=== PATIENT | female | born 1985 | race Caucasian/White ===

== ENCOUNTER → 2017-03-27 | Outpatient (CLI) | payer OTHER ==
[~2017-03-27] MED LIST: ACHD5005 PO; BIRTH CONTROL; BIRTH CONTROL PILL PO; BPR75T PO; BUPR200T2 PO; CEPH500C PO; CYCL10TA9 PO; CYCL5TAB11 PO; DCS100C PO; DICY20TA57 PO; GBPN300C PO; HYDR-34 PO; HYDR-3583 PO; HYDR-757 PO; HYDR1TAB PO; HYDR1TAB75 PO; IBP800T PO; IBUP-1773 PO; Ibuprofen PO; METH4TAB PO; MULT-241 PO; NAPR220T29 PO; NITR-65 PO; OXYC-12 PO; PRD20T PO; PROP1TAB77 PO; SMT80CT PO; TOPAMAX PO; TPR100T PO; VNL75CCR PO
--- NOTE | 2017-03-27 19:05 | Diagnostic Imaging Report ---
INDICATION: Abdominal pain for two weeks, bloating. COMPARISON STUDY: None. FINDINGS: Supine view of the abdomen demonstrates surgical clips in the region of the gallbladder fossa. There is normal bowel gas pattern. The osseous structures are normal. There are no abnormal calcifications. IMPRESSION: Normal KUB. Dictated by: Dictated on workstation # [id number]
== END ==
LOC: RAD 14:32
PROVIDERS: ATTEND Nurse Practitioner Family
DX: R10.30 Lower abdominal pain, unspecified (principal); R14.0 Abdominal distension (gaseous)
CPT/HCPCS: 74000

== ENCOUNTER 2017-03-30 15:29 | Emergency (ER) | payer OTHER ==
[~2017-03-30] VITALS: Ht 165.1 cm; Wt 72.6 kg
[2017-03-30 15:49] VITALS: BP 120/92
--- NOTE | 2017-03-30 15:50 | ED Abdominal Pain ---
General Stated Complaint: FEVER/R SIDE ABD PAIN Source of Information: Patient Exam Limitations: No Limitations History of Present Illness Time Seen By Provider: 15:48 Initial Comments To ER by her with reports of right lower quadrant abdominal pain and fever up to 101. This is been ongoing for about 2 weeks. She was seen by her primary care provider Dr. Meza who put her on Flagyl and Bentyl on 03/27/17. Patient denies improvement. She does state that the diarrhea that she initially had has resolved and her stools are now formed but the pain seems to have centered in the right lower quadrant and is associated with nausea and poor appetite for the past few days. Timing/Duration: Getting Worse Severity/Quality: Moderate Location: RLQ Radiation: No Radiation Associated Symptoms: Fever/Chills, Nausea/Vomiting Allergies and Home Medications Allergies Coded Allergies: tramadol (Unverified Allergy, Mild, HIVES, ANXIOUS, DIZY, 10/02/09) Home Medications Bupropion Hcl 200 Mg Tablet.sa, 200 MG PO BID, (Reported) Hydrocodone Bit/Acetaminophen 1 Ea Tablet, 1 EA PO Q6H PRN for PAIN, #50 Prescribed by: CLARENCE MITCHELL on 06/24/141739 Hydrocodone/Acetaminophen 1 Each Tablet, 1 EACH PO Q4H PRN for PAIN-MODERATE, # 10 Prescribed by: ASH MOBLEY on 03/30/17 1714 Methylprednisolone 4 Mg/Dose-Pack Tab.ds.pk, 1 PKT PO UD, #1 Prescribed by: CHRISTINA DAVALOS on 09/11/14 1847 Ondansetron 8 Mg Tab.rapdis, 8 MG PO Q6H PRN for NAUSEA/VOMITING-2ND LINE, #10 Prescribed by: ASH MOBLEY on 03/30/17 1714 Oxycodone Hcl/Acetaminophen 1 Each Tablet, 1-2 EACH PO Q6H PRN for PAIN, #20 Prescribed by: CHRISTINA DAVALOS on 09/11/14 184 Topiramate 100 Mg Tablet, 1.5 TAB PO BID, #30 (Reported) [Ibuprofen] 600 MG TAB, 600 MG PO Q6H PRN for PAIN, #80 Prescribed by: CLARENCE MITCHELL on 06/24/141739 Review of Systems Constitutional: see HPI EENTM: No Symptoms Reported Respiratory: No Symptoms Reported Cardiovascular: No Symptoms Reported Gastrointestinal: See HPI, Abdominal Pain, Denies Constipated, Diarrhea ( resolved currently), Denies Nausea Genitourinary: No Symptoms Reported Musculoskeletal: no symptoms reported Skin: no symptoms reported Psychiatric/Neurological: No Symptoms Reported Endocrine: No Symptoms Reported Past Ktnntwt-Xtncrq-Xcoigu Hx Patient Social History Recent Foreign Travel: No Contact w/Someone Who Travel: No Immunizations Up To Date Date of Pneumonia Vaccine: Jun 24, 2012 Date of Influenza Vaccine: Sep 17, 2012 Surgeries HX Surgeries: Yes (EXP LAP X2, HERNIA, ABLATION,) Surgeries: Hysterectomy Respiratory Hx Respiratory Disorders: No Cardiovascular Hx Cardiac Disorders: No Neurological Hx Neurological Disorders: No (MIGRAINES) Reproductive System Hx Reproductive Disorders: Yes (MENORRHAGIA, CPP) Sexually Transmitted Disease: 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 Genitourinary Hx Genitourinary Disorders: Yes Gastrointestinal Hx Gastrointestinal Disorders: No Musculoskeletal Hx Musculoskeletal Disorders: No Endocrine Hx Endocrine Disorders: No HEENT HX ENT Disorders: No Cancer Hx Cancer: No Psychosocial Hx Psychiatric Problems: Yes Behavioral Health Disorders: Anxiety, Depression Blood Transfusions Hx Blood Disorders: No Family Medical History Significant Family History: No Pertinent Family Hx Family Medial History: Cancer 03 MOTHER GRANDPARENTS Family history: Alzheimer's disease GRANDPARENTS Family history: Cardiovascular disease GRANDPARENTS Family history: Diabetes mellitus GRANDPARENTS Family history: Hypertension GRANDPARENTS Myocardial infarction GRANDPARENTS No Family History of: Alcoholism Congenital heart disease Congestive heart failure Family history: Allergy Family history: Arthritis Family history: Asthma Family history: Breast disease Family history: Gastrointestinal disease Family history: Thyroid disorder Hereditary disease History of - respiratory disease Parkinson's disease Psychotic disorder Seizure disorder Stroke Physical Exam Vital Signs VS - Last 72 Hours, by Label 03/30/17 15:49 Temp 98.6 Pulse 97 Resp 20 B/P (MAP) 120/92 Pulse Ox 97 O2 Delivery Room Air Capillary Refill : General Appearance: WD/WN, no apparent distress HEENT: PERRL/EOMI, normal ENT inspection Neck: non-tender, full range of motion Respiratory: no respiratory distress, no accessory muscle use Gastrointestinal: normal bowel sounds, soft, rebound, tenderness (right lower quadrant) Extremities: normal range of motion, non-tender Neurologic/Psychiatric: alert, oriented x 3, other (very flat rather depressed affect. ) Skin: normal color, warm/dry Progress/Results/Core Measures Results/Orders Lab Results Laboratory Tests Test 03/30/17 15:46 03/30/17 16:30 Range/Units White Blood Count 10.1 4.3-11.0 10^3/uL Red Blood Count 4.80 4.35-5.85 10^6/uL Hemoglobin 14.3 11.5-16.0 G/DL Hematocrit 42 35-52 % Mean Corpuscular Volume 88 80-99 FL Mean Corpuscular Hemoglobin 30 25-34 PG Mean Corpuscular Hemoglobin Concent 34 32-36 G/DL Red Cell Distribution Width 12.3 10.0-14.5 % Platelet Count 255 130-400 10^3/uL Mean Platelet Volume 10.7 H 7.4-10.4 FL Neutrophils (%) (Auto) 65 42-75 % Lymphocytes (%) (Auto) 25 12-44 % Monocytes (%) (Auto) 8 0-12 % Eosinophils (%) (Auto) 2 0-10 % Basophils (%) (Auto) 0 0-10 % Neutrophils # (Auto) 6.6 1.8-7.8 X 10^3 Lymphocytes # (Auto) 2.6 1.0-4.0 X 10^3 Monocytes # (Auto) 0.8 0.0-1.0 X 10^3 Eosinophils # (Auto) 0.2 0.0-0.3 10^3/uL Basophils # (Auto) 0.0 0.0-0.1 10^3/uL Sodium Level 141 135-145 MMOL/L Potassium Level 3.7 3.6-5.0 MMOL/L Chloride Level 112 H 98-107 MMOL/L Carbon Dioxide Level 19 L 21-32 MMOL/L Anion Gap 10 5-14 MMOL/L Blood Urea Nitrogen 15 7-18 MG/DL Creatinine 1.04 0.60-1.30 MG/DL Estimat Glomerular Filtration Rate > 60 BUN/Creatinine Ratio 14 Glucose Level 86 70-105 MG/DL Calcium Level 10.0 8.5-10.1 MG/DL Total Bilirubin 0.8 0.1-1.0 MG/DL Aspartate Amino Transf (AST/SGOT) 16 5-34 U/L Alanine Aminotransferase (ALT/SGPT) 15 0-55 U/L Alkaline Phosphatase 54 40-136 U/L Total Protein 8.0 6.4-8.2 G/DL Albumin 4.8 H 3.2-4.5 G/DL Urine Color YELLOW Urine Clarity SLIGHTLY CLOUDY Urine pH 8 5-9 Urine Specific [place] 1.020 1.016-1.022 Urine Protein 1+ H NEGATIVE Urine Glucose (UA) NEGATIVE NEGATIVE Urine Ketones 1+ H NEGATIVE Urine Nitrite NEGATIVE NEGATIVE Urine Bilirubin NEGATIVE NEGATIVE Urine Urobilinogen NORMAL NORMAL MG/DL Urine Leukocyte Esterase 1+ H NEGATIVE Urine RBC (Auto) NEGATIVE NEGATIVE Urine RBC NONE /HPF Urine WBC RARE /HPF Urine Squamous Epithelial Cells 0-2 /HPF Urine Crystals NONE /LPF Urine Amorphous Sediment MOD MONA PHOSPHATE H /LPF Urine Bacteria NEGATIVE /HPF Urine Casts NONE /LPF Urine Mucus NEGATIVE /LPF Urine Culture Indicated NO My Orders Orders - ASH MOBLEY APRN Ua Culture If Indicated (03/30/17 15:32) Cbc With Automated Diff (03/30/17 15:47) Comprehensive Metabolic Panel (03/30/17 15:47) Saline Lock/Iv-Start (03/30/17 15:47) Ct Abd/Pelv W (Appendicitis) (03/30/17 15:47) Lactated Ringers (Lr 1000 Ml Iv Solution (03/30/17 16:00) Ondansetron Injection (Zofran Injectio (03/30/17 16:00) Ketorolac Injection (Toradol Injection) (03/30/17 16:00) Iohexol Injection (Omnipaque 350 Mg/Ml 1 (03/30/17 16:00) Ns (Ivpb) (Sodium Chloride 0.9% Ivpb Bag (03/30/17 16:00) Fentanyl Injection (Sublimaze Injection (03/30/17 17:00) Fentanyl Injection (Sublimaze Injection (03/30/17 17:15) Us Non Ob Transvaginal [id number] (03/30/17 17:06) Medications Given in ED Current Medications Medications Dose Ordered Sig/Olivia Route Start Time Stop Time Status Last Admin Dose Admin Fentanyl Citrate 50 mcg ONCE ONCE IVP 03/30/17 17:15 03/30/17 17:16 DC 03/30/17 17:07 50 MCG Iohexol 100 ml ONCE ONCE IV 03/30/17 16:00 03/30/17 16:01 DC 03/30/17 16:19 100 ML Ketorolac Tromethamine 30 mg ONCE ONCE IVP 03/30/17 16:00 03/30/17 16:01 DC 03/30/17 16:09 30 MG Ondansetron HCl 8 mg ONCE ONCE IVP 03/30/17 16:00 03/30/17 16:01 DC 03/30/17 16:09 8 MG Sodium Chloride 100 ml ONCE ONCE IV 03/30/17 16:00 03/30/17 16:01 DC 03/30/17 16:19 80 ML Vital Signs/I&O Vital Sign - Last 12Hours 03/30/17 15:49 Temp 98.6 Pulse 97 Resp 20 B/P (MAP) 120/92 Pulse Ox 97 O2 Delivery Room Air Diagnostic Imaging Diagonstic Imaging: CT Comments NAME: FRITZ [facility] REC#: [id number] PT STATUS: REG ER : 1985 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 TECHNIQUE: Multiple contiguous axial images were obtained through the abdomen and pelvis after the administration of intravenous contrast. INDICATION: Right lower quadrant and groin pain. COMPARISON: February 04, 2013. FINDINGS: The visualized lung bases are clear. Cholecystectomy. The liver and spleen are unremarkable. The adrenal glands are unremarkable. The pancreas is unremarkable. The kidneys are unremarkable. No aneurysmal dilatation of the abdominal aorta. Mild diastases of the rectus abdominal musculature. The urinary bladder is unremarkable. The uterus is not visualized, likely surgically absent. The left ovary is enlarged when compared to the prior examination. The right adnexa is unremarkable. No bowel obstruction or pneumatosis. No significant adenopathy, free air or free fluid within the abdomen or pelvis. No acute osseous abnormality. A 1.5 cm fat density lesion is noted within a loop of bowel within the right lower pelvis, felt to relate to a lipoma. No evidence of acute appendicitis. IMPRESSION: 1. Enlargement of the left ovary when compared to the prior examination. This is nonspecific and could simply relate to development of internal follicles. However, ovarian torsion is not excluded, recommend clinical correlation. If there is any clinical concern for ovarian torsion, a pelvic ultrasound should be obtained. 2. No evidence of acute appendicitis. 3. Additional findings as described above. Report was called to Ash Mobley APRN in the [facility] ER at 5:04 p.m., by rico. Dictated on workstation # [id number] Dict: 03/30/17 1643 Trans: 03/30/17 1706 RICO [id number] Interpreted by: JOSIE HARRIS MD Electronically signed by: Departure Communication Progress Notes 1700-nausea is now completely gone. Pain has reduced to a 4. Awaiting urinalysis and CT report. 1823-Transvaginal US unremarkable with normal flow to left ovary per US tech. Will DC to home. Impression Impression: Primary Impression: Nonspecific abdominal pain Additional Impression: Possible Lipoma of small intestine Disposition: HOME, SELF-CARE Condition: Improved Departure-Patient Inst. Decision time for Depature: 17:12 Referrals: DEZ BARROS BRETT D DO JENKINS, XAVIER M MD KIDO, TAKAAKI MD STEVENS, RACHEL L MD (PCP/Family) Primary Care Physician Patient Instructions: NO INSTRUCTIONS GIVEN Add. Discharge Instructions: 1. Return to ER for any worsening symptoms 2. Follow-up with Dr. Meza tomorrow and schedule follow up with a surgeon to discuss any further evaluation that may be warranted for the abdominal pain. Scripts Ondansetron (Zofran Odt) 8 Mg Tab.rapdis 8 MG PO Q6H Y for NAUSEA/VOMITING-2ND LINE, #10 TAB Prov: ASH MOBLEY APRN 03/30/17 Hydrocodone/Acetaminophen ([place] 5-325 Tablet) 1 Each Tablet 1 EACH PO Q4H Y for PAIN-MODERATE, #10 TAB Prov: ASH MOBLEY APRN 03/30/17 Copy Copies To 1: WILLOW MEZA MD, PETER J APRN March 30, 2017 15:50
[2017-03-30 15:52] LABS: BASOPHILS % (AUTO) 0 % (0-10); EOSINOPHILS # (AUTO) 0.2 10^3/uL (0.0-0.3); EOSINOPHILS % (AUTO) 2 % (0-10); LYMPHOCYTES # (AUTO) 2.6 X 10^3 (1.0-4.0); LYMPHOCYTES % (AUTO) 25 % (12-44); MEAN CORPUSCULAR HEMOGLOBIN 30 PG (25-34); MEAN CORPUSCULAR HGB CONC 34 G/DL (32-36); MEAN CORPUSCULAR VOLUME 88 FL (80-99); MEAN PLATELET VOLUME 10.7 FL (7.4-10.4); MONOCYTES # (AUTO) 0.8 X 10^3 (0.0-1.0); MONOCYTES % (AUTO) 8 % (0-12); NEUTROPHILS # (AUTO) 6.6 X 10^3 (1.8-7.8); NEUTROPHILS % (AUTO) 65 % (42-75); PLATELET COUNT 255 10^3/uL (130-400); RED CELL DISTRIBUTION WIDTH 12.3 % (10.0-14.5); WHITE BLOOD COUNT 10.1 10^3/uL (4.3-11.0)
[2017-03-30] MEDS ORDERED: IOHEXOL 350 MG/ML 100 ML (OMNIPAQUE 350) VIAL IV ONE (16:00)
[2017-03-30] MEDS ORDERED: ONDANSETRON 4 MG/2 ML (SDV) Z0FRAN IVP ONE (16:00)
[2017-03-30] MEDS ORDERED: LACTATED RINGERS 1,000 ML IV SCH (16:00)
[2017-03-30] MEDS ORDERED: NS 100 ML (IVPB) BAG IV ONE (16:00)
[2017-03-30] MEDS ORDERED: KETOROLAC 30 MG/ML VIAL IVP ONE (16:00)
[2017-03-30 16:13] LABS: ALANINE AMINOTRANSFERASE 15 U/L (0-55); ALBUMIN 4.8 G/DL (3.2-4.5); ANION GAP 10 MMOL/L (5-14); ASPARTATE AMINO TRANSFERASE 16 U/L (5-34); BILIRUBIN,TOTAL 0.8 MG/DL (0.1-1.0); BLOOD UREA NITROGEN 15 MG/DL (7-18); BUN/CREATININE RATIO 14; CARBON DIOXIDE 19 MMOL/L (21-32); CHLORIDE 112 MMOL/L (98-107); CREATININE SERUM 1.04 MG/DL (0.60-1.30); GFR ESTIMATED > 60; GLUCOSE 86 MG/DL (70-105); POTASSIUM 3.7 MMOL/L (3.6-5.0); SODIUM 141 MMOL/L (135-145)
[2017-03-30 16:45] LABS: BILIRUBIN,URINE NEGATIVE (NEGATIVE); KETONES,URINE 1+ (NEGATIVE); LEUKOCYTE ESTERASE ,URINE 1+ (NEGATIVE); NITRITE,URINE NEGATIVE (NEGATIVE); PH,URINE 8 (5-9); PROTEIN,URINE 1+ (NEGATIVE); UROBILINOGEN,URINE NORMAL (NORMAL)
[2017-03-30] MEDS ORDERED: fentaNYL INJECTION 100 MCG/2 ML AMP IVP ONE ×2 (17:00→17:15)
[2017-03-30 17:05] LABS: SQUAMOUS EPITHELIAL CELL,UR 0-2 /HPF; WBC,URINE RARE /HPF
--- NOTE | 2017-03-30 17:06 | Diagnostic Imaging Report ---
PROCEDURE: CT abdomen and pelvis with contrast, rule out appendicitis. TECHNIQUE: Multiple contiguous axial images were obtained through the abdomen and pelvis after the administration of intravenous contrast. INDICATION: Right lower quadrant and groin pain. COMPARISON: February 04, 2013. FINDINGS: The visualized lung bases are clear. Cholecystectomy. The liver and spleen are unremarkable. The adrenal glands are unremarkable. The pancreas is unremarkable. The kidneys are unremarkable. No aneurysmal dilatation of the abdominal aorta. Mild diastases of the rectus abdominal musculature. The urinary bladder is unremarkable. The uterus is not visualized, likely surgically absent. The left ovary is enlarged when compared to the prior examination. The right adnexa is unremarkable. No bowel obstruction or pneumatosis. No significant adenopathy, free air or free fluid within the abdomen or pelvis. No acute osseous abnormality. A 1.5 cm fat density lesion is noted within a loop of bowel within the right lower pelvis, felt to relate to a lipoma. No evidence of acute appendicitis. IMPRESSION: 1. Enlargement of the left ovary when compared to the prior examination. This is nonspecific and could simply relate to development of internal follicles. However, ovarian torsion is not excluded, recommend clinical correlation. If there is any clinical concern for ovarian torsion, a pelvic ultrasound should be obtained. 2. No evidence of acute appendicitis. 3. Additional findings as described above. Report was called to Javier Mobley APRN in the [facility] [place] ER at 5:04 p.m., by dillon. Dictated by: Dictated on workstation # [id number]
[2017-03-30] MEDS ORDERED: ONDA8TAB9 PO (17:14)
[2017-03-30] MEDS ORDERED: HYDR-757 PO (17:14)
--- NOTE | 2017-03-30 18:48 | Diagnostic Imaging Report ---
Clinical indication: Patient with right-sided abdominal pain and fever. Patient had CT earlier. Patient has history of right ovary and uterus removal. Exam: Transabdominal and transvaginal ultrasound of the pelvis. Comparison: CT scan of the abdomen and pelvis with contrast dated 03/30/2017. Pelvic ultrasound dated 11/05/2013. Findings: Visualized expected region of the right pelvis shows no significant abnormality. Patient has history of right ovary and uterus removal. There is a 9 mm x 7 mm x 7 mm cystic structure within the left ovary. Left ovary is otherwise unremarkable. There is normal appearing spectral Doppler waveform involving the left ovary. There is no evidence of ovarian torsion. The left ovary measures 2.4 cm x 2.3 cm x 2.4 cm. There is no other significant abnormality seen on this exam. Impression: 1: There is a 9 mm left ovarian cyst. Otherwise, left ovary is unremarkable. There is no evidence of ovarian torsion. 2: Surgically absent right ovary and uterus. Dictated by: Dictated on workstation # [id number]
== END 2017-03-30 18:25 | disposition home or self-care (01) ==
LOC: EDUNIT# 15:29 → ER 15:31
DX: R10.31 Right lower quadrant pain (principal); R50.9 Fever, unspecified; N83.9 Noninflammatory disorder of ovary, fallopian tube and broad ligament, unspecified
CPT/HCPCS: 36415; 74177; 76830; 80053; 81000; 85025; 96361; 96374; 96375

== ENCOUNTER 2017-04-01 15:36 | Emergency (ER) | payer OTHER ==
[~2017-04-01] VITALS: Ht 152.4 cm; Wt 76.2 kg
[~2017-04-01 15:36] MED LIST changes: +ONDA8TAB9 PO
[2017-04-01] MEDS ORDERED: CIPR-226 PO (16:02)
[2017-04-01] MEDS ORDERED: DICY10CA59 PO (16:02)
--- NOTE | 2017-04-01 16:07 | ED Neurological Problem ---
General Chief Complaint: Neurological Problems Stated Complaint: NUMBNESS IN EXTREMITIES,LIGHT HEADEDNESS Nursing Triage Note: pt complained of generalized pain started couple weeks ago. pain got worse yesterday. today pt is having numbness, tingling, neck pain. Nursing Sepsis Screen: No Definite Risk Source: patient Exam Limitations: no limitations History of Present Illness Time seen by provider: 16:50 Initial Comments 1605 patient refuses to see a provider until her is present in the room. 1650 is now present in the room. Allergies and Home Medications Allergies Coded Allergies: tramadol (Unverified Allergy, Mild, HIVES, ANXIOUS, DIZY, 10/02/09) Home Medications Bupropion Hcl 200 Mg Tablet.sa, 200 MG PO BID, (Reported) Ciprofloxacin HCl 250 Mg Tablet, 250 MG PO, (Reported) Dicyclomine HCl 10 Mg Capsule, 10 MG PO, (Reported) Hydrocodone Bit/Acetaminophen 1 Ea Tablet, 1 EA PO Q6H PRN for PAIN, #50 Prescribed by: CLARENCE MITCHELL on 06/24/14 1740 Topiramate 100 Mg Tablet, 1.5 TAB PO BID, #30 (Reported) Past Shmpiri-Qeopik-Vfakwj Hx Patient Social History Alcohol Use: Denies Use Recreational Drug Use: No Smoking Status: Never a Smoker 2nd Hand Smoke Exposure: No Recent Foreign Travel: No Contact w/Someone Who Travel: No Recent Infectious Disease Expo: No Recent Hopitalizations: No Immunizations Up To Date PED Vaccines UTD: No Date of Pneumonia Vaccine: Jun 24, 2012 Date of Influenza Vaccine: Sep 17, 2012 Seasonal Allergies Seasonal Allergies: No Surgeries HX Surgeries: Yes (EXP LAP X2, HERNIA, ABLATION,) Surgeries: Gallbladder, Hysterectomy, Tubal Ligation Respiratory Hx Respiratory Disorders: No Cardiovascular Hx Cardiac Disorders: No Neurological Hx Neurological Disorders: No (MIGRAINES) Reproductive System Hx Reproductive Disorders: Yes (MENORRHAGIA, CPP) 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 Genitourinary Hx Genitourinary Disorders: Yes Genitourinary Disorders: UTI-Chronic Gastrointestinal Hx Gastrointestinal Disorders: No Musculoskeletal Hx Musculoskeletal Disorders: No Endocrine Hx Endocrine Disorders: No HEENT HX ENT Disorders: No Cancer Hx Cancer: No Psychosocial Hx Psychiatric Problems: Yes Behavioral Health Disorders: Anxiety, Depression Blood Transfusions Hx Blood Disorders: No Family Medical History Significant Family History: No Pertinent Family Hx Family Medial History: Cancer 03 MOTHER GRANDPARENTS Family history: Alzheimer's disease GRANDPARENTS Family history: Cardiovascular disease GRANDPARENTS Family history: Diabetes mellitus GRANDPARENTS Family history: Hypertension GRANDPARENTS Myocardial infarction GRANDPARENTS No Family History of: Alcoholism Congenital heart disease Congestive heart failure Family history: Allergy Family history: Arthritis Family history: Asthma Family history: Breast disease Family history: Gastrointestinal disease Family history: Thyroid disorder Hereditary disease History of - respiratory disease Parkinson's disease Psychotic disorder Seizure disorder Stroke Physical Exam Vital Signs Vital Sign - Last 12Hours 04/01/17 15:48 Temp 98.7 Pulse 66 Resp 20 B/P (MAP) 130/88 Pulse Ox 99 O2 Delivery Room Air Capillary Refill : Less Than 3 Seconds Progress/Results/Core Measures Results/Orders Lab Results Laboratory Tests Test 04/01/17 15:47 04/01/17 17:47 Range/Units Urine Color YELLOW Urine Clarity CLEAR Urine pH 7 5-9 Urine Specific [place] 1.010 L 1.016-1.022 Urine Protein NEGATIVE NEGATIVE Urine Glucose (UA) NEGATIVE NEGATIVE Urine Ketones NEGATIVE NEGATIVE Urine Nitrite NEGATIVE NEGATIVE Urine Bilirubin NEGATIVE NEGATIVE Urine Urobilinogen NORMAL NORMAL MG/DL Urine Leukocyte Esterase NEGATIVE NEGATIVE Urine RBC (Auto) NEGATIVE NEGATIVE Urine RBC NONE /HPF Urine WBC NONE /HPF Urine Squamous Epithelial Cells RARE /HPF Urine Crystals NONE /LPF Urine Bacteria NONE /HPF Urine Casts NONE /LPF Urine Mucus NEGATIVE /LPF Urine Culture Indicated NO White Blood Count 6.8 4.3-11.0 10^3/uL Red Blood Count 4.00 L 4.35-5.85 10^6/uL Hemoglobin 11.9 11.5-16.0 G/DL Hematocrit 35 35-52 % Mean Corpuscular Volume 89 80-99 FL Mean Corpuscular Hemoglobin 30 25-34 PG Mean Corpuscular Hemoglobin Concent 34 32-36 G/DL Red Cell Distribution Width 12.3 10.0-14.5 % Platelet Count 210 130-400 10^3/uL Mean Platelet Volume 10.6 H 7.4-10.4 FL Neutrophils (%) (Auto) 71 42-75 % Lymphocytes (%) (Auto) 21 12-44 % Monocytes (%) (Auto) 7 0-12 % Eosinophils (%) (Auto) 2 0-10 % Basophils (%) (Auto) 0 0-10 % Neutrophils # (Auto) 4.8 1.8-7.8 X 10^3 Lymphocytes # (Auto) 1.4 1.0-4.0 X 10^3 Monocytes # (Auto) 0.5 0.0-1.0 X 10^3 Eosinophils # (Auto) 0.1 0.0-0.3 10^3/uL Basophils # (Auto) 0.0 0.0-0.1 10^3/uL Erythrocyte Sedimentation Rate 8 0-20 MM/HR Sodium Level 142 135-145 MMOL/L Potassium Level 3.7 3.6-5.0 MMOL/L Chloride Level 113 H 98-107 MMOL/L Carbon Dioxide Level 21 21-32 MMOL/L Anion Gap 8 5-14 MMOL/L Blood Urea Nitrogen 9 7-18 MG/DL Creatinine 0.96 0.60-1.30 MG/DL Estimat Glomerular Filtration Rate > 60 BUN/Creatinine Ratio 9 Glucose Level 85 70-105 MG/DL Calcium Level 9.2 8.5-10.1 MG/DL Total Bilirubin 0.4 0.1-1.0 MG/DL Aspartate Amino Transf (AST/SGOT) 90 H 5-34 U/L Alanine Aminotransferase (ALT/SGPT) 75 H 0-55 U/L Alkaline Phosphatase 74 40-136 U/L C-Reactive Protein High Sensitivity 0.40 0.00-0.50 MG/DL Total Protein 6.5 6.4-8.2 G/DL Albumin 4.2 3.2-4.5 G/DL Lipase 14 8-78 U/L My Orders Orders - DARIANA BOLDEN Cbc With Automated Diff (04/01/17 17:18) Comprehensive Metabolic Panel (04/01/17 17:18) Hs C Reactive Protein (04/01/17 17:18) Lipase (04/01/17 17:18) Ua Culture If Indicated (04/01/17 17:18) Erythrocyte Sedimentation Rate (04/01/17 17:18) Saline Lock/Iv-Start (04/01/17 17:18) Ketorolac Injection (Toradol Injection) (04/01/17 17:18) Ns Iv 1000 Ml (Sodium Chloride 0.9%) (04/01/17 17:18) Iv Push Youth Program Director Ed (04/01/17 ) Medications Given in ED Vital Signs/I&O Vital Sign - Last 12Hours 04/01/17 04/01/17 15:48 19:52 Temp 98.7 97.6 Pulse 66 63 Resp 20 20 B/P (MAP) 130/88 Pulse Ox 99 99 O2 Delivery Room Air Blood Pressure Mean: 102 Departure Impression Impression: Primary Impression: Abdominal pain Additional Impressions: Nausea Ovarian cyst Disposition: HOME, SELF-CARE Condition: Improved Departure-Patient Inst. Decision time for Depature: 19:39 Referrals: QUINTON BALES MD, RACHEL L MD (PCP/Family) Primary Care Physician Patient Instructions: Acute Abdomen (Belly Pain), Adult (DC), GASTROENTERITIS- 7Y-ADULT Add. Discharge Instructions: All discharge instructions reviewed with patient and/or family. Voiced understanding. Continue cipro, zofran, and bentyl. Drink plenty of fluids. Continue miralax. Clear liquid diet x3 days, then increase as tolerated. Avoid spicy foods and fatty foods. Follow-up with Dr. Bales tomorrow for recheck , call first in the morning for appointment time. Return to the emergency department for worsened pain, fever, vomiting, rectal bleeding, black stools, vomiting blood, or any other concerns. DARIANA BOLDEN April 01, 2017 16:07
[2017-04-01] MEDS ORDERED: KETOROLAC 30 MG/ML VIAL IVP STA (17:18)
[2017-04-01] MEDS ORDERED: NS IV 1000 ML 1,000 ML IV ONE (17:18)
[2017-04-01 17:24] LABS: BILIRUBIN,URINE NEGATIVE (NEGATIVE); KETONES,URINE NEGATIVE (NEGATIVE); LEUKOCYTE ESTERASE ,URINE NEGATIVE (NEGATIVE); NITRITE,URINE NEGATIVE (NEGATIVE); PH,URINE 7 (5-9); PROTEIN,URINE NEGATIVE (NEGATIVE); UROBILINOGEN,URINE NORMAL (NORMAL)
[2017-04-01 17:31] LABS: SQUAMOUS EPITHELIAL CELL,UR RARE /HPF
[2017-04-01 17:58] LABS: BASOPHILS % (AUTO) 0 % (0-10); EOSINOPHILS # (AUTO) 0.1 10^3/uL (0.0-0.3); EOSINOPHILS % (AUTO) 2 % (0-10); LYMPHOCYTES # (AUTO) 1.4 X 10^3 (1.0-4.0); LYMPHOCYTES % (AUTO) 21 % (12-44); MEAN CORPUSCULAR HEMOGLOBIN 30 PG (25-34); MEAN CORPUSCULAR HGB CONC 34 G/DL (32-36); MEAN CORPUSCULAR VOLUME 89 FL (80-99); MEAN PLATELET VOLUME 10.6 FL (7.4-10.4); MONOCYTES # (AUTO) 0.5 X 10^3 (0.0-1.0); MONOCYTES % (AUTO) 7 % (0-12); NEUTROPHILS # (AUTO) 4.8 X 10^3 (1.8-7.8); NEUTROPHILS % (AUTO) 71 % (42-75); PLATELET COUNT 210 10^3/uL (130-400); RED CELL DISTRIBUTION WIDTH 12.3 % (10.0-14.5); WHITE BLOOD COUNT 6.8 10^3/uL (4.3-11.0)
[2017-04-01 18:16] LABS: ALANINE AMINOTRANSFERASE 75 U/L (0-55); ALBUMIN 4.2 G/DL (3.2-4.5); ANION GAP 8 MMOL/L (5-14); ASPARTATE AMINO TRANSFERASE 90 U/L (5-34); BILIRUBIN,TOTAL 0.4 MG/DL (0.1-1.0); BLOOD UREA NITROGEN 9 MG/DL (7-18); BUN/CREATININE RATIO 9; CALCIUM 9.2 MG/DL (8.5-10.1); CARBON DIOXIDE 21 MMOL/L (21-32); CHLORIDE 113 MMOL/L (98-107); CREATININE SERUM 0.96 MG/DL (0.60-1.30); GFR ESTIMATED > 60; GLUCOSE 85 MG/DL (70-105); LIPASE 14 U/L (8-78); POTASSIUM 3.7 MMOL/L (3.6-5.0); SODIUM 142 MMOL/L (135-145); TOTAL PROTEIN 6.5 G/DL (6.4-8.2)
[2017-04-01 18:19] LABS: ERYTHROCYTE SEDIMENTATION RATE 8 MM/HR (0-20)
[2017-04-01 19:52] VITALS: BP 133/75
== END 2017-04-01 19:52 | disposition home or self-care (01) ==
LOC: EDUNIT# 15:36 → ER 15:38
DX: R10.30 Lower abdominal pain, unspecified (principal); R11.0 Nausea; N83.202 Unspecified ovarian cyst, left side
CPT/HCPCS: 36415; 80053; 81000; 83690; 85025; 85652; 86141; 96361; 96374

== ENCOUNTER 2022-11-08 11:05 | Emergency (ER) | payer OTHER ==
[~2022-11-08] VITALS: Ht 167 cm; Wt 104.0 kg
[~2022-11-08 11:05] MED LIST changes: +CIPR-226 PO; +DICY10CA59 PO; +HYDR-4226 PO
--- NOTE | 2022-11-08 11:23 | ED Chest Pain ---
General Chief Complaint: Chest Pain Stated Complaint: CHEST PAINS Nursing Triage Note: PT STATES CENTER CHEST PAIN SHARP AND TIGHT THAT STARTED FRIDAY, PALPATATIONS FOR A COUPLE WEEKS. Source: patient Exam Limitations: no limitations History of Present Illness Date Seen by Provider: Nov 08, 2022 Time Seen by Provider: 11:19 Initial Comments To ER by private vehicle. She presented to [facility] this morning for complaints of chest pain for 3 days. She is had palpitations for about 2 weeks. When she gets these palpitations they seem to take her breath away lasting only a few seconds. No syncope or near syncope. No cough no fevers. Chest pain is tight and dull currently but has been tight and sharp. Is worsened by activity and deep breathing. Does not smoke. Timing/Duration: changing over time Severity/Quality: moderate Location: central Radiation: no radiation Activities at Onset: none Prior CP/Workup: no prior chest pain ASA po COMPRESSED GASES TESTER: No NTG SL COMPRESSED GASES TESTER: No Associated Symptoms: denies symptoms Allergies and Home Medications Allergies Coded Allergies: tramadol (Unverified Allergy, Mild, HIVES, ANXIOUS, DIZY, 10/02/09) Patient Home Medication List Home Medication List Reviewed: Yes Bupropion Hcl (Wellbutrin Sr) 200 Mg Tablet.sa, 200 MG PO BID, (Reported) Entered as Reported by: REBECCA KWONG on 01/12/14 0829 Ciprofloxacin HCl (Cipro) 250 Mg Tablet, 250 MG PO, (Reported) Entered as Reported by: JOSE MIGUEL MILLER on 04/01/17 1602 Dicyclomine HCl (Bentyl) 10 Mg Capsule, 10 MG PO, (Reported) Entered as Reported by: JOSE MIGUEL MILLER on 04/01/17 1602 Hydrocodone Bit/Acetaminophen (Lortab 7.5 Mg) 1 Ea Tablet, 1 EA PO Q6H PRN for PAIN Prescribed by: CLARENCE MITCHELL on 06/24/14 1740 Topiramate (Topamax) 100 Mg Tablet, 1.5 TAB PO BID, (Reported) Entered as Reported by: SONDRA BABCOCK on 06/22/14 1313 Review of Systems Review of Systems Constitutional: see HPI; No chills, No fever, No malaise, No weakness EENTM: No Symptoms Reported Respiratory: See HPI, Cough Cardiovascular: No Symptoms Reported Gastrointestinal: No Symptoms Reported Genitourinary: No Symptoms Reported Musculoskeletal: no symptoms reported Skin: no symptoms reported Psychiatric/Neurological: No Symptoms Reported Endocrine: No Symptoms Reported Hematologic/Lymphatic: No Symptoms Reported Past Xhjbyza-Dtetrf-Iqovzy Hx Patient Social History Tobacco Use?: No Substance use?: No Alcohol Use?: No Immunizations Up To Date PED Vaccines UTD: No Seasonal Allergies Seasonal Allergies: No Past Medical History Surgery/Hospitalization HX: GERD, HYPOTHYROIDISM Surgeries: Yes (EXP LAP X2, HERNIA, ABLATION,) Gallbladder, Hysterectomy, Tubal Ligation Respiratory: No Cardiac: No Neurological: Yes (MIGRAINES) Reproductive Disorders: Yes (MENORRHAGIA, CPP) [employer] History: Hysterectomy Sexually Transmitted Disease: No Genitourinary: Yes UTI-Chronic Gastrointestinal: No Musculoskeletal: No Endocrine: No HEENT: No Cancer: No Psychosocial: Yes Anxiety, Depression Integumentary: No Blood Disorders: No Family Medical History Cancer 03 MOTHER GRANDPARENTS Family history: Alzheimer's disease GRANDPARENTS Family history: Cardiovascular disease GRANDPARENTS Family history: Diabetes mellitus GRANDPARENTS Family history: Hypertension GRANDPARENTS Myocardial infarction GRANDPARENTS No Family History of: Alcoholism Congenital heart disease Congestive heart failure Family history: Allergy Family history: Arthritis Family history: Asthma Family history: Breast disease Family history: Gastrointestinal disease Family history: Thyroid disorder Hereditary disease History of - respiratory disease Parkinson's disease Psychotic disorder Seizure disorder Stroke No Pertinent Family Hx Physical Exam Vital Signs Vital Signs - First Documented 11/08/22 11:11 Temp 36.5 Pulse 86 Resp 18 B/P (MAP) 178/109 (132) Pulse Ox 100 O2 Delivery Room Air Capillary Refill : Less Than 3 Seconds Height, Weight, BMI Height: 5'0" Weight: 168lbs. 0.0oz. 76.589470ny; 37.00 BMI Method:Stated General Appearance: No Apparent Distress, WD/WN Neck: Full Range of Motion, Normal Inspection Respiratory: Normal Breath Sounds, No Accessory Muscle Use, No Respiratory Distress Cardiovascular: Regular Rate, Rhythm, Normal Peripheral Pulses Gastrointestinal: Normal Bowel Sounds, Non Tender, Soft Extremity: Normal Capillary Refill, Normal Inspection Neurologic/Psychiatric: Alert, Oriented x3 Skin: Normal Color, Warm/Dry Progress/Results/Core Measures Results/Orders Lab Results Laboratory Tests Test 11/08/22 11:14 Range/Units White Blood Count 9.5 4.3-11.0 10^3/uL Red Blood Count 4.69 3.80-5.11 10^6/uL Hemoglobin 13.7 11.5-16.0 g/dL Hematocrit 40 35-52 % Mean Corpuscular Volume 86 80-99 fL Mean Corpuscular Hemoglobin 29 25-34 pg Mean Corpuscular Hemoglobin Concent 34 32-36 g/dL Red Cell Distribution Width 12.9 10.0-14.5 % Platelet Count 230 130-400 10^3/uL Mean Platelet Volume 10.8 9.0-12.2 fL Immature Granulocyte % (Auto) 0 % Neutrophils (%) (Auto) 68 42-75 % Lymphocytes (%) (Auto) 24 12-44 % Monocytes (%) (Auto) 6 0-12 % Eosinophils (%) (Auto) 2 0-10 % Basophils (%) (Auto) 1 0-10 % Neutrophils # (Auto) 6.4 1.8-7.8 10^3/uL Lymphocytes # (Auto) 2.3 1.0-4.0 10^3/uL Monocytes # (Auto) 0.5 0.0-1.0 10^3/uL Eosinophils # (Auto) 0.2 0.0-0.3 10^3/uL Basophils # (Auto) 0.1 0.0-0.1 10^3/uL Immature Granulocyte # (Auto) 0.0 0.0-0.1 10^3/uL D-Dimer 0.39 0.00-0.49 UG/ML Sodium Level 137 135-145 MMOL/L Potassium Level 3.8 3.6-5.0 MMOL/L Chloride Level 101 98-107 MMOL/L Carbon Dioxide Level 26 21-32 MMOL/L Anion Gap 10 5-14 MMOL/L Blood Urea Nitrogen 14 7-18 MG/DL Creatinine 0.81 0.60-1.30 MG/DL Estimat Glomerular Filtration Rate 96 BUN/Creatinine Ratio 17 Glucose Level 115 H 70-105 MG/DL Calcium Level 10.1 8.5-10.1 MG/DL Corrected Calcium 9.7 8.5-10.1 MG/DL Total Bilirubin 0.4 0.1-1.0 MG/DL Aspartate Amino Transf (AST/SGOT) 20 5-34 U/L Alanine Aminotransferase (ALT/SGPT) 40 0-55 U/L Alkaline Phosphatase 71 40-136 U/L Troponin I < 0.028 <0.028 NG/ML Total Protein 8.2 6.4-8.2 GM/DL Albumin 4.5 3.2-4.5 GM/DL Serum Test, Qualitative NEGATIVE NEGATIVE My Orders Orders - ASH HEATH APRN Ekg Tracing (11/08/22 11:10) Cbc With Automated Diff (11/08/22 11:17) Fibrin Degradation Products (11/08/22 11:17) Comprehensive Metabolic Panel (11/08/22 11:17) Hcg,Qualitative Serum (11/08/22 11:17) Chest 1 View, Ap/Pa Only (11/08/22 11:17) Troponin I Quoc (11/08/22 11:17) Antacid Suspension (Mylanta Suspension (11/08/22 11:30) Lidocaine 2% Viscous 15 Ml (Xylocaine Vi (11/08/22 11:30) Medications Given in ED Current Medications Medications Dose Ordered Sig/Olivia Route Start Time Stop Time Status Last Admin Dose Admin Al Hydrox/Mg Hydrox/Simethicone 30 ml ONCE ONCE PO 11/08/22 11:30 11/08/22 11:31 DC 11/08/22 11:22 30 ML Lidocaine HCl 15 ml ONCE ONCE PO 11/08/22 11:30 11/08/22 11:31 DC 11/08/22 11:23 15 ML Vital Signs/I&O 11/08/22 11:11 Temp 36.5 Pulse 86 Resp 18 B/P (MAP) 178/109 (132) Pulse Ox 100 O2 Delivery Room Air Blood Pressure Mean: 132 Departure Communication (Admissions) Family Conversation 1202-blood pressure has fallen to 140/90, was 170/90 on arrival. Given her sensation of palpitations with hypertension I will start her on a beta-cinda, metoprolol extended release 25 mg daily. The chest pain is likely related to pleurisy/pleuritic pain as it seems to be worse with deep breathing. The GI cocktail did not help with the chest pain. Her EKG is without acute abnormality, sinus rhythm no ectopy rate of [address] segment changes. NAME: FRITZ KEARNEY [facility] REC#: [id number] PT STATUS: REG ER : 1985 PHYSICIAN: ASH HEATH APRN ADMIT DATE: 11/08/22/ER Draft Date of Exam:11/08/22 CHEST 1 VIEW, AP/PA ONLY Indication: Chest pain. Time of Exam: 11:33 AM No prior studies are available for comparison. Findings: The heart size is normal. The pulmonary vascularity is unremarkable. The lungs are clear. No infiltrate, effusion or pneumothorax is detected. Impression: No acute cardiopulmonary process is detected. Dictated on workstation # [id number] Dict: 11/08/22 1146 Trans: 11/08/22 1147 [facility] [id number] Interpreted by: KETAN SPRINGER MD Electronically signed by: Impression Primary Impression: Palpitations Additional Impression: Pleuritic chest pain Disposition: HOME, SELF-CARE Condition: Stable Departure-Patient Inst. Decision time for Depature: 12:03 Referrals: WILLOW HANEY MD (PCP/Family) Primary Care Physician Patient Instructions: Palpitations ED, Pleuritic Chest Pain ED Add. Discharge Instructions: Medication as directed. Tylenol and ibuprofen for the chest pain. Return to ER for any concerns. Follow-up with your doctor next week. All discharge instructions reviewed with patient and/or family. Voiced understanding. Scripts Metoprolol Succinate (Toprol Xl) 25 Mg Tab.er.24h 25 MG PO DAILY, #30 TAB 1 Refill Prov: ASH HEATH APRN 11/08/22 ASH HEATH APRN Nov 08, 2022 11:23
[2022-11-08 11:27] LABS: BASOPHILS # (AUTO) 0.1 10^3/uL (0.0-0.1); BASOPHILS % (AUTO) 1 % (0-10); EOSINOPHILS # (AUTO) 0.2 10^3/uL (0.0-0.3); EOSINOPHILS % (AUTO) 2 % (0-10); HEMATOCRIT 40 % (35-52); HEMOGLOBIN 13.7 g/dL (11.5-16.0); LYMPHOCYTES # (AUTO) 2.3 10^3/uL (1.0-4.0); LYMPHOCYTES % (AUTO) 24 % (12-44); MEAN CORPUSCULAR HEMOGLOBIN 29 pg (25-34); MEAN CORPUSCULAR HGB CONC 34 g/dL (32-36); MEAN CORPUSCULAR VOLUME 86 fL (80-99); MEAN PLATELET VOLUME 10.8 fL (9.0-12.2); MONOCYTES # (AUTO) 0.5 10^3/uL (0.0-1.0); MONOCYTES % (AUTO) 6 % (0-12); NEUTROPHILS # (AUTO) 6.4 10^3/uL (1.8-7.8); NEUTROPHILS % (AUTO) 68 % (42-75); PLATELET COUNT 230 10^3/uL (130-400); WHITE BLOOD COUNT 9.5 10^3/uL (4.3-11.0)
[2022-11-08] MEDS ORDERED: LIDOCAINE 2% VISCOUS 15 ML UDC PO ONE (11:30)
[2022-11-08] MEDS ORDERED: ANTACID SUSP 30 ML UDC (MYLANTA) PO ONE (11:30)
[2022-11-08 11:31] LABS: ALBUMIN 4.5 GM/DL (3.2-4.5)
[2022-11-08 11:32] LABS: CHLORIDE 101 MMOL/L (98-107); POTASSIUM 3.8 MMOL/L (3.6-5.0); SODIUM 137 MMOL/L (135-145)
[2022-11-08 11:33] LABS: CALCIUM 10.1 MG/DL (8.5-10.1)
[2022-11-08 11:34] LABS: GLUCOSE 115 MG/DL (70-105); TOTAL PROTEIN 8.2 GM/DL (6.4-8.2)
[2022-11-08 11:35] LABS: CARBON DIOXIDE 26 MMOL/L (21-32)
[2022-11-08 11:36] LABS: BILIRUBIN,TOTAL 0.4 MG/DL (0.1-1.0)
[2022-11-08 11:37] LABS: ALKALINE PHOSPHATASE 71 U/L (40-136)
[2022-11-08 11:38] LABS: CREATININE SERUM 0.81 MG/DL (0.60-1.30); GFR ESTIMATED 96
[2022-11-08 11:39] LABS: BUN/CREATININE RATIO 17
[2022-11-08 11:40] LABS: ALANINE AMINOTRANSFERASE 40 U/L (0-55)
--- NOTE | 2022-11-08 11:47 | Diagnostic Imaging Report ---
Indication: Chest pain. Time of Exam: 11:33 AM No prior studies are available for comparison. Findings: The heart size is normal. The pulmonary vascularity is unremarkable. The lungs are clear. No infiltrate, effusion or pneumothorax is detected. Impression: No acute cardiopulmonary process is detected. Dictated by: Dictated on workstation # [id number]
[2022-11-08] MEDS ORDERED: METO-351 PO (12:04)
[2022-11-08 12:13] VITALS: BP 140/89
== END 2022-11-08 12:15 | disposition home or self-care (01) ==
LOC: EDUNIT# 11:05 → ER 11:10
DX: R00.2 Palpitations (principal); R07.81 Pleurodynia; Z88.6 Allergy status to analgesic agent; Z28.311 Partially vaccinated for COVID-19
CPT/HCPCS: 36415; 71045; 80053; 84484; 84703; 85025; 85379

== ENCOUNTER → 2022-11-27 | Outpatient (CLI) | payer OTHER ==
[~2022-11-27] MED LIST changes: +METO-351 PO
== END ==
LOC: CARD 12:30
PROVIDERS: ATTEND Nurse Practitioner Family
DX: R07.9 Chest pain, unspecified (principal)
CPT/HCPCS: 93225; 93226

== ENCOUNTER → 2022-12-10 | Outpatient (CLI) | payer OTHER | LOC: CARD 08:13 | PROVIDERS: ATTEND Internal Medicine Cardiovascular Disease | DX: I10 Essential (primary) hypertension (principal); I25.10 Atherosclerotic heart disease of native coronary artery without angina pectoris | CPT/HCPCS: 93306 ==

== ENCOUNTER → 2023-01-22 | Outpatient (CLI) | payer OTHER ==
[2023-01-22 13:45] VITALS: BP 112/67
--- NOTE | 2023-01-22 16:22 | Cardiology Stress Test Report ---
Stress Test Report Date of Procedure/Referring: Date of Procedure: Jan 22, 2023 PCP Alvina Mcintosh Aprn Admitting Physician Admitting Physician: Attending Physician: Virginie Allen MD Indications: CP Baseline Heart Rate: 61 Baseline Blood Pressure: Blood Pressure Systolic: 112 Blood Pressure Diastolic: 67 Baseline EKG: Baseline EKG: NSR Summary/Conclusion: Summary: In summary, the patient started exercising with a baseline heart rate, blood pressure and EKG mentioned above Patient was able to exercise for a total of 9 minutes on Conner protocol, METs 10.5 Maximum heart rate 163 Maximum blood pressure 149/72 Stress EKG, Minimal nondiagnostic changes Recovery EKG , Return to baseline Conclusion: 1. Good exercise tolerance for a total of 9 minutes on Conner protocol, 10.5 METs, achieving 88 percent of maximum expected heart rate 2. Minimal nondiagnostic EKG changes with exercise returned to baseline during recovery 3. No arrhythmia was noted Copy Copies To 1: [facility] [place] ALLEN MD Jan 22, 2023 16:22
== END ==
LOC: CARD 13:26
PROVIDERS: ATTEND Internal Medicine Cardiovascular Disease
DX: R07.9 Chest pain, unspecified (principal)
CPT/HCPCS: 93017